=== PATIENT | female | born 1985 | race Caucasian/White ===

== ENCOUNTER 2020-03-01 19:16 | Emergency (ER) | payer SELFPAY ==
[~2020-03-01] VITALS: Ht 172.7 cm; Wt 72.7 kg
[2020-03-01] MEDS ORDERED: naloxone 2mg/2ml inj IV STA (19:24)
[2020-03-01] MEDS ORDERED: naloxone 2mg/2ml inj ONE (19:24)
[2020-03-01] MEDS ORDERED: normal saline 1000ML IV soln IVB ONE (19:35)
[2020-03-01 19:43] LABS: BASOPHILS % (AUTO) 0.4 % (0-1); EOSINOPHILS # (AUTO) 0.1 X10'3 (0-0.9); EOSINOPHILS % (AUTO) 2.9 % (0-6); HEMATOCRIT 38.4 % (35.0-45.0); HEMOGLOBIN 12.3 g/dl (12.0-16.0); LYMPHOCYTES # (AUTO) 1.3 X10'3 (1.1-4.8); LYMPHOCYTES % (AUTO) 25.4 % (21-51); MEAN CORPUSCULAR HEMOGLOBIN 27.3 PG (27.0-31.0); MEAN CORPUSCULAR HGB CONC 32.2 g/dL (33.0-36.5); MEAN CORPUSCULAR VOLUME 84.8 FL (78-98); MONOCYTES # (AUTO) 0.4 X10'3 (0-0.9); MONOCYTES % (AUTO) 8.9 % (2-12); NEUTROPHILS # (AUTO) 3.1 X10'3 (1.8-7.7); NEUTROPHILS % (AUTO) 62.4 % (42-75); PLATELET COUNT 188 X10'3 (140-440); RED BLOOD COUNT 4.53 X10'6 (4.20-5.60); RED CELL DISTRIBUTION WIDTH 14.2 % (11.5-14.5); WHITE BLOOD COUNT 4.9 X10'3 (4.5-11.0)
--- NOTE | 2020-03-01 19:52 | NUR ---
SPOKE TO LUTHER OF POISON CONTROL ABOUT PATIENT AND HER CONDITION. SHE RECOMMENDS CMP, MG, CK, LACTIC ACID, CBC, AND CXR WATCHING FOR BRADYCARDIA AND RECOMMENDS AN EKG 2 HOURS AFTER THE FIRST WELL HYPOTENSION. DR. HOBSON NOTIFIED.
[2020-03-01 19:53] LABS: CLARITY,URINE CLEAR (Clear); COLOR,URINE YELLOW (Yellow); GLUCOSE, URINE NEGATIVE (Neg); KETONES,URINE NEGATIVE (Neg); LEUKOCYTE ESTERASE ,URINE SMALL (Neg); NITRITES, URINE POSITIVE (Neg); OCCULT BLOOD,URINE NEGATIVE (Neg); PH,URINE 6.5 (4.8-8.0); PROTEIN,URINE NEGATIVE (Neg); UROBILINOGEN,URINE 0.2 E.U/dL (0.2-1.0)
[2020-03-01 19:54] LABS: UA COLLECTION TYPE STRAIGHT CATH
[2020-03-01 19:57] LABS: ALANINE AMINOTRANSFERASE 29 U/L (12-78); ALBUMIN 3.3 G/DL (3.4-5.0); ALBUMIN/GLOBULIN RATIO 0.8 (1.1-1.5); ALKALINE PHOSPHATASE 89 IU/L (46-116); ANION GAP 7 (8-16); ASPARTATE AMINO TRANSFERASE 20 U/L (10-37); BILIRUBIN,TOTAL 0.6 MG/DL (0.1-1.0); BLOOD UREA NITROGEN 9 MG/DL (7-18); BUN/CREATININE RATIO 10.7 (6.6-38.0); CALCIUM 8.8 MG/DL (8.5-10.1); CHLORIDE 106 MMOL/L (99-107); CREATINE KINASE 36 U/L (26-192); CREATININE 0.84 MG/DL (0.40-0.90); GLUCOSE 98 MG/DL (70-104); POTASSIUM 3.6 MMOL/L (3.5-5.1); SODIUM 139 MMOL/L (135-145); TOTAL CARBON DIOXIDE 26.2 MMOL/L (24-32); TOTAL PROTEIN 7.2 G/DL (6.4-8.2); eGFR 78 ML/MIN
[2020-03-01 19:59] LABS: ETHANOL < 0.010 GM/DL (0.0-0.010)
[2020-03-01 20:03] LABS: BACTERIA,URINE 2+ /HPF (Neg); RBC,URINE 0-2 /HPF (0-2); SQUAMOUS EPITHELIAL CELL,UR FEW /LPF (FEW); URINE AMPHETAMINE SCREEN POSITIVE (Neg); URINE BARBITUATE SCREEN NEGATIVE (Neg); URINE BENZODIAZEPINES SCREEN NEGATIVE (Neg); URINE CANNABINOID SCREEN NEGATIVE (Neg); URINE COCAINE SCREEN NEGATIVE (Neg); URINE METHADONE SCREEN NEGATIVE (Neg); URINE OPIATE SCREEN POSITIVE (Neg); URINE PHENCYCLIDINE SCREEN NEGATIVE (Neg)
[2020-03-01 20:04] LABS: RENAL CELLS, URINE FEW /HPF; TRANSITIONAL EPI CELLS,URINE FEW /HPF; WBC CLUMPS,URINE FEW /HPF (NEGATIVE)
[2020-03-01] MEDS ORDERED: LORazepam 2 mg/ml vial IV ONE (20:20)
[2020-03-01 20:27] LABS: MAGNESIUM 1.7 MG/DL (1.5-2.4)
--- NOTE | 2020-03-01 21:05 | NUR ---
Patient was flailing about in bed with no ability to monitor her due to pulling at her cables. Order was obtained for soft restraints. Patient continues to thash about in bed. Spoke to Dr. Garcia who orders haldol and bendryl.
[2020-03-01] MEDS ORDERED: haloperidol lactate 5mg/ml inj IM ONE (21:10)
[2020-03-01] MEDS ORDERED: diphenhydrAMINE 50 mg/ml inj IM ONE (21:10)
--- NOTE | 2020-03-01 21:16 | NUR ---
relieving RN for break, pt is agitated, moving all extremities, medicated per MD order
[2020-03-01] MEDS ORDERED: CEPH500C5 PO (21:33)
--- NOTE | 2020-03-01 21:46 | NUR ---
PATIENT CONTINUES TO TOSS AND TURN UNCONTROLLABLY IN BED. BOYFRIEND REMAINS AT BEDSIDE.
--- NOTE | 2020-03-02 02:14 | NUR ---
INDIGO PRIMARY RN FOR BREAK. PT CURENTLY SLEEPING WITH BF BEDSIDE. WILL CONT TO MONITOR.
--- NOTE | 2020-03-02 04:13 | NUR ---
PT URINATED IN THE BED - WHILE ASSISTING STAFF TO CLEAN PT I NOTICED A LIP BALM CONTAINER WEDGED IN HER SPORTS BRA BETWEEN HER BREASTS. UPON OPENING IT I NOTICED THAT IT CONTAINED A BLACK ROCK LIKE ITEM CONSISTENT WITH THE APPEARANCE OF HEROIN. SECURITY WAS CALLED TO THE BEDSIDE AND DISPOSED OF THE ITEM. SHE HAD A PURSE IN THE ROOM. THE CARLOSRIJUAN WAS QUESTIONED ABOUT THERE THERE BEING OTHER DRUGS IN THE PURSE. HE SHRUGGED HIS SHOULDERS AND SAID, "I DON'T THINK SO". HE WAS ADVISED THAT THE PURSE NEEDED TO BE PUT IN A VEHICLE IN THE PARKING LOT OR ELSE WE WOULD NEED TO GO THROUGH IT. HE CHOSE TO TAKE THE PURSE TO THE PARKING LOT.
[2020-03-02 04:22] LABS: TROPONIN I < 0.04 NG/ML (0.0-0.05)
[2020-03-02 04:50] VITALS: BP 122/75
--- NOTE | 2020-03-02 04:50 | NUR ---
PT WALKED TO BATHROOM WITH NO DIFFICULTY AND NO ASSISTANCE. MD MANSFIELD
== END 2020-03-02 04:52 | disposition home or self-care (01) ==
LOC: ER 19:16
DX: T40.1X1A Poisoning by heroin, accidental (unintentional), initial encounter (principal); N39.0 Urinary tract infection, site not specified; R51.9 Headache, unspecified; Z79.2 Long term (current) use of antibiotics; Y92.89 Other specified places as the place of occurrence of the external cause
CPT/HCPCS: 36415; 71045; 80053; 80305; 80320; 81001; 82550; 83605; 83735; 84484; 85025; 87077; 87088; 87186; 93005; 96372; 96374; 96375; 99285; J1200; J1630; J2060; J2310; J7030